=== PATIENT | female | born 1975 | race Caucasian/White ===

== ENCOUNTER 2020-03-04 07:27 | Outpatient (REF) | payer OTHER, SELFPAY ==
--- NOTE | 2020-03-04 07:36 | MM_ITS ---
EXAMINATION: MM SCREENING DIGITAL BREAST TOMOSYNTHESIS, BILATERAL CLINICAL INFORMATION: Screening. Asymptomatic. The lifetime risk of breast cancer based on the Tyrer-Cuzick Model is 19.2%. COMPARISON: Mammography: 07/14/2018, 07/04/2017 TECHNIQUE: Digital breast tomosynthesis is performed in both the craniocaudal and mediolateral oblique views along with computer-aided detection (CAD). Synthesized 2D images are generated from the tomosynthesis. Additional left MLO view is provided. FINDINGS: There are scattered areas of fibroglandular density (ACR BI-RADS breast composition Category b). There are no significant masses, abnormal calcifications, or other abnormalities. Parenchymal pattern is similar to prior exams. No significant changes. MM/MM tomosynthesis screening BI IMPRESSION: No mammographic evidence of malignancy. ASSESSMENT: BI-RADS 1: Negative RECOMMENDATION: Routine annual mammography screening. This patient's information was entered into a reminder system with a target due date for their next mammogram.
== END 2020-03-04 07:28 | disposition home or self-care (01) ==
LOC: HO.MAMMO 07:27
PROVIDERS: PCP Nurse Practitioner Family; Visit Provider Internal Medicine
DX: Z12.31 Encounter for screening mammogram for malignant neoplasm of breast (principal)
CPT/HCPCS: 77063; 77067

== ENCOUNTER 2021-03-17 08:24 | Outpatient (REF) | payer OTHER, SELFPAY ==
--- NOTE | ~2021-03-17 | MM_ITS ---
EXAMINATION: MM SCREENING DIGITAL BREAST TOMOSYNTHESIS, BILATERAL CLINICAL INFORMATION: Screening. Asymptomatic. The lifetime risk of breast cancer based on the Tyrer-Cuzick Model is 20%. COMPARISON: Mammography: 03/04/2020, 07/14/2018, 07/04/2017 (baseline) TECHNIQUE: Digital breast tomosynthesis is performed in both the craniocaudal and mediolateral oblique views along with computer-aided detection (CAD). Synthesized 2D images are generated from the tomosynthesis. FINDINGS: There are scattered areas of fibroglandular density (ACR BI-RADS breast composition Category b). There are no significant masses, abnormal calcifications, or other abnormalities. MM/MM tomosynthesis screening BI IMPRESSION: No mammographic evidence of malignancy. ASSESSMENT: BI-RADS 1: Negative RECOMMENDATION: 1. Routine annual mammography screening. 2. The lifetime risk of breast cancer based on the Tyrer-Cuzick Model is 20%. Additional annual adjunct screening with breast MRI may be of benefit in women with a risk score of 20% or greater. This patient's information was entered into a reminder system with a target due date for their next mammogram.
== END 2021-03-17 08:25 | disposition home or self-care (01) ==
LOC: HO.MAMMO 08:24
PROVIDERS: PCP Nurse Practitioner Family; Visit Provider Nurse Practitioner Family
DX: Z12.31 Encounter for screening mammogram for malignant neoplasm of breast (principal)
CPT/HCPCS: 77063; 77067

== ENCOUNTER 2022-03-23 07:59 | Outpatient (REF) | payer OTHER, SELFPAY ==
--- NOTE | ~2022-03-23 | MM_ITS ---
EXAMINATION: MM SCREENING DIGITAL BREAST TOMOSYNTHESIS, BILATERAL CLINICAL INFORMATION: Screening. Asymptomatic. The lifetime risk of breast cancer based on the Tyrer-Cuzick Model is 20.3%. Additional annual screening with breast MRI may be of benefit in women with a score of 20% or greater. COMPARISON: Mammography: March 17, 2021 and studies dating back to July 04, 2017 TECHNIQUE: Digital breast tomosynthesis is performed in both the craniocaudal and mediolateral oblique views along with computer-aided detection (CAD). Synthesized 2D images are generated from the tomosynthesis. FINDINGS: There are scattered areas of fibroglandular density (ACR BI-RADS breast composition Category b). There are no significant masses, abnormal calcifications, or other abnormalities. MM/MM tomosynthesis screening BI IMPRESSION: No significant changes from prior exam. ASSESSMENT: BI-RADS 1: Negative RECOMMENDATION: Routine annual mammography screening. This patient's information was entered into a reminder system with a target due date for their next mammogram.
== END 2022-03-23 08:00 | disposition home or self-care (01) ==
LOC: HO.MAMMO 07:59
PROVIDERS: PCP Nurse Practitioner Family; Visit Provider Nurse Practitioner Family
DX: Z12.31 Encounter for screening mammogram for malignant neoplasm of breast (principal)
CPT/HCPCS: 77063; 77067

== ENCOUNTER 2023-03-29 07:48 | Outpatient (REF) | payer OTHER, SELFPAY | END 2023-03-29 07:49 | disposition home or self-care (01) | LOC: HO.MAMMO 07:48 | PROVIDERS: PCP Nurse Practitioner Family; Visit Provider Nurse Practitioner Family | DX: Z12.31 Encounter for screening mammogram for malignant neoplasm of breast (principal) | CPT/HCPCS: 77063; 77067 ==

== ENCOUNTER → 2023-03-29 08:00 | Outpatient (BNV) | payer OTHER, SELFPAY | PROVIDERS: PCP Nurse Practitioner Family; Visit Provider Radiology Diagnostic Radiology | DX: Z12.31 Encounter for screening mammogram for malignant neoplasm of breast (principal) | CPT/HCPCS: 77063; 77067 ==

== ENCOUNTER 2024-04-01 07:51 | Outpatient (REF) | payer OTHER, SELFPAY ==
--- OUTSIDE RECORDS SUMMARY | 2024-04-01 07:54 | XMS_ITS | Clinical Summary ---
Author Organization [facility] Address [address] [place] [address] Care Team Providers Care Coal Sampler Name Role Phone Unavailable Primary Care Provider Unavailabl e Source Comments PLEASE NOTE, if this patient is a minor, it may be UNLAWFUL to discuss sensitive information that is contained in these records (such as FAMILY PLANNING, MENTAL HEALTH or SUBSTANCE ABUSE) with the minor patient's parent or other person without the patient's specific authorization.[facility] Immunizations Name Administration Dates Next Due Moderna COVID-19 Vaccine, re d cap blue label, 12+ Primary Series 06/24/2020,05/27/2020 Social History Tobacco Use Types Packs/Day Years Used Date Smoking Tobacco: Never Assessed Social Connections Answer Date Recorded Social Connections and Isolation 0 05/25/2020 Financial Resource Strain Answer Date R ecorded Financial Resource Strain 0 2020 Stress Answer Date Recorded Stress 0 05/25/2020 Physical Activity Answer Date Recorded Physical Activity 0 05/25/2020 Food Insecurity Answer Date Recorded Food 0 05/25/2020 Transportation Needs Answer Date Record ed Transportation 0 05/25/2020 Housing Stability Answer Date Recorded Housing 0 05/25/2020 Safety and Environment Answer Date Juan rded Safety 0 05/25/2020 Utilities Answer Date Recorded Utilities 0 05/25/2020 Employment Answer Date Recorded Employment 0 05/25/2020 Comments Unknown Sex and Gender Information Value Date Recorded Sex Assigned at Not on file Legal Sex Female 5:56 AM PDT Gender Identity Not on file Sexual Orientation Not on file Plan of Treatment Health Maintenance Due Date Last Done Comments Diabetes Screening 1977 HPV Screening 1977 Hepatitis C Screening 1977 Lipid Screening 1977 Pap + HPV 1977 Tobacco Screening 1977 HIV Screening 01/31/1992 Relationship Safety Screening/Counseling 01/31/1992 Annual Preventive Care Visit 1995 Hypertension Screening (#1) 1995 Imm-Hepatitis B (1 of 3 - 19 + 3-dose series) 01/31/1996 Cervical Cancer Screening 1998 Pap Smear 1998 Breast Cancer Screening (Mammogram) 2017 CT Colonography 2022 Colonoscopy 2022 Colorectal Cancer Screening 2022 FIT/gFOBT 2022 Fecal DNA 2022 Flexible Sigmoidoscopy 2022 Wln-[id number]-69 ( season) 2023 021, 05/27/2020 Imm-Influenza (#1) 2023 11/14/2019, 1 , 11/17/2017, Additional history exists Alcohol and Drug Screen 03/06/2024 Depression Annual Screen 03/06/2024 Imm-DTaP/Tdap/Td (2 - Td or Tdap) 11/13/2029 020 Cervical Ablation/Cold-Knife Conization Discontinued Cervical Cryotherapy Discontinued Colposcopy Discontinued Endometrial Biopsy Discontinued Excision/Leep Discontinued HPV Genotyping Discontinued Vaginal Pap Discontinued Vulvoscopy Discontinued Insurance HNE ([employer]) Member Subscriber Plan / Payer (Ef fective 2017-Present) Name:Eris Gandhi Relation to Subscriber:Self Name:Eris Gandhi Payer ID:[id number] Group ID:Not on file Type:Indemnity Address: [address] [place] [id number]
--- OUTSIDE RECORDS SUMMARY | 2024-04-01 07:54 | XMS_ITS | Data Portability ---
Author Organization [facility], [address] Address [address] [place] [id number] Assessment No assessment recorded. Plan of Treatment Reminders Order Date Submit Date Provider Last Modified By Organization Details Last Modified Time Details Appointments None recorded. Lab None recorded. Referral None recorded. Procedures None recorded. Surgeries None recorded. Imaging None recorded. Medication Orders prednisone 20 mg tablet 2021 022 [facility]/Pharmacy #[id number], [address] [place], [address], 08:48:21 Patient TargetsNo targets recorded. Patient Instructions Encounter Date Encounter Id Patient Instructions Last Modified By Organization Details Last Modified Time 02/19/2022 [id number] hip bursitis: care instructions [id number] Not available 02/19/2022 08:48:20 trochanteric bursitis: exercises [email or web address] Not available 02/19/2022 08:48:19 IF SYMPTOMS ARE NOT IMPROVING AFTER 5 DAYS, FOLLOW UP WITH AN ORTHOPEDIC. IF YOU NEED ANY HELP MAKING AN APPOINTMENT, PLEASE LET US KNOW. Go to the nearest emergency department if you develop ANY new or worsening symptoms. Call 911 if you feel that you are having a medical emergency. Call your primary care physician today to set up a follow up appointment within one week. Not following up with your primary care physician may result in adverse health conditions. If you have any questions or concerns, please call us. Take over the counter medications such as ibuprofen or tylenol according to package instructions. Do not exceed maximum dosage for age/weight. Do not take anything that you might be allergic to. Make sure to consult us or your primary care physician if you take medications such as blood thinners or blood pressure medications before taking over the counter medications. The best over the counter cough medication for people with high blood pressure is Coricidin, which is available at any pharmacy without a prescription. Drink plenty of water. [email or web address] Not available 02/19/2022 08:48:03 Reason for Referral None Reported. Problems No Known Problems Procedures Surgical History Date Name Laterality Status Provider Name and Address Organization Details Recorded Time procedure on neck completed BHAVANI DEPINTO PA - [facility] 02/19/2022 08:35:32 Imaging Results None recorded. Procedure Notes None recorded. Medical Equipment None Reported. Allergies No known drug allergies Medications Name Sig Start Date Stop Date Status Note LastModified by Organization Details LastModified Time prednisone 20 mg tablet Take 2 tablets every day by oral route for 5 days. 022 active Not Available Not Available Not Avai lable Vitals Date Recorded Body height Provider Name an d Address Organization Details Last Updated DateTime 02/19/2022 165.1 cm BHAVANI DEPINTO PA - [facility] 1 04/22/2021 08:33:23 Date Recorded Body mass index (BMI) Body weight Provider Name and Address Organization Details Last Updated DateTime 02/19/2022 32.3 kg/m2 25401.92 g BHAVANI DEPINTO PA - [facility] 02/19/2022 08:33:26 Date Recorded Pain severity - 0-10 verbal numeric rating [Score] - Reported Provider Name and Address Organization Details Last Updated DateTime 02/19/2022 0 BHAVANI DEPINTO PA - [facility] 1 04/22/2021 08:33:47 Date Recorded Respiratory rate Provider Name a nd Address Organization Details Last Updated DateTime 02/19/2022 20 /min BHAVANI DEPINTO PA - [facility] 1 04/22/2021 08:36:20 Date Recorded Body temperature Provider Name a nd Address Organization Details Last Updated DateTime 02/19/2022 97.5 [degF] BHAVANI DEPINTO PA - [facility] 02/19/2022 08:36:23 Date Recorded Oxygen saturation Oxygen saturation in Arterial blood by Pulse oximetry Provider Name and Address Organization Details Last Updated DateTime 02/19/2022 98 % 98 % BHAVANI DEPINTO PA - [facility] 02/19/2022 08:36:40 Date Recorded Heart rate Provider Name an d Address Organization Details Last Updated DateTime 02/19/2022 79 /min BHAVANI ALAMO PA - [facility] 1 04/22/2021 08:36:41 Date Recorded Systolic blood pressure Diastolic blood pressure Provider Name and Address Organization Details Last Updated DateTime 02/19/2022 144 mm[Hg] 83 mm[Hg] BHAVANI ALAMO PA - [facility] 02/19/2022 08:36:45 Social History Question Answer Notes LastModified by Organizat ion Details LastModified Time Tobacco Smoking Status Never Smoker BHAVANI ALAMO tony, PA - [facility] 02/19/2022 08:35:14 What Is Your Level Of Alcohol Consumption? Occasional Information not available 02/19/2022 How Many Times Per Week Do You Consume Alcohol? 1-2 Times Per Week Information not available 02/19/2022 Do You Use Any Illicit Or Recreational Drugs? No Information not available 02/19/2022 Have You Recently Traveled Abroad? No Information not available 02/19/2022 Do You Or Have You Ever Used Any Other Forms Of Tobacco Or Nicotine? No Information not available 02/19/2022 Sex: Unknown Functional Status None recorded. Mental Status None recorded. Family History Relationship Description Onset Age of this Age Resolved Age Notes LastModified by Organization Details LastModified Time Father Heart disease Not available 2021 08:35:01 Medical History No medical history recorded. Gynecological HistoryNo gynecological history recorded. Obstetrics History GPAL:G 0 P 0 0 0 0 Past Encounters Encounter ID Performer Location Encounter Start Date Encounter Closed Date Diagnosis/Indication Diagnosis SNOMED-CT Code Diagnosis ICD10 Code Diagnosis Note [id number] [address] [place] [address] 02/07/2018 09:52:36 02/07/2018 10:57:10 [id number] [address] [place] [address] 10/07/2018 08:57:42 10/07/2018 09:21:15 [id number] [facility] [address] [place], [place] [address] [address] 02/13/2015 13:55:53 02/13/2015 14:18:42 [id number] [facility] Wallace [address] [facility] JOSE RAMON Sanchez [address] 02/19/2022 08:28:56 02/19/2022 08:49:45 Trochanteric bursitis of left hip [id number] 63372 M70.62 Health Concerns Section Related Observation LastModified by Organization Detai ls LastModified Time None Recorded Concern Status LastModified by Organization Details LastModified Time None Recorded Advance Directives Directive None Recorded Payers Encounter Date Sequence Insurance Name Policy Number Policy Fraire Covered Member ID Fraire Member ID Guarantor Name 02/13/2015 1 [facility] [id number] 1 Eris Gandhi [id number] Eris Weber 02/07/2018 1 [facility] [id number] 1 Eris Gandhi [id number] Eris Weber 10/07/2018 1 [facility] [id number] 1 Eris Poole Cadieux [id number] Eris Weber 02/19/2022 1 [facility] [id number] 1 Eris Poole Cadieux [id number] Eris Weber Notes Date Note Type Note Provider Name and Address Organization Details Recorded Time 02/19/2022 text/html Thigh / HipReported bypatient.Notes:Pt reports left hip pain x 2 weeks. She was stretching after working out and got a charley horse in the left lateral proximal hip. Reports it hasn't really improved much since then. Reports it is particularly bothersome at night when she lays on it or moves, wakes her up from sleep. Taking ibuprofen without relief. Notices it more with movement, but also hurts to palpation. Maybe slight occasional left lumbar back pain, but only a few times. Denies knee pain. Denies numbness, tingling, weakness, swelling, or trauma to the area. GUILHERME Wallace [address] [place], [address], PA - [facility] 02/19/2022 08:55:51 OBGyn Episode No OBEpisode recorded.
--- OUTSIDE RECORDS SUMMARY | 2024-04-01 07:54 | XMS_ITS | Clinical Summary ---
Author Organization [facility] Address [address] [place] [phone] Phone Care Team Providers Care Toddler Nanny Name Role Phone Unavailable Primary Care Provider Unavailabl e Immunizations Name Administration Dates Next Due DTP 02/25/1982, 1,06/30/1978,06/27/18 78,1977 MMR 08/28/1992,12/25/1978 OPV 02/25/1982, 1,1977,05/23/18 78 Td (adult) (MBL), 2 Lf tetan us toxoid, PF, adsorbed 02/06/1992 Social History Tobacco Use Types Packs/Day Years Used Date Smoking Tobacco: Never Assessed Comments Unknown Sex and Gender Information Value Date Recorded Sex Assigned at Not on file Legal Sex Female 4:30 PM EDT Gender Identity Not on file Sexual Orientation Not on file Plan of Treatment Health Maintenance Due Date Last Done Comments DTaP,Tdap,and Td Vaccines (6 - Tdap) 02/07/1992 02/06/1992, 02/25/1982, 10/14/1980, Additional history exists Varicella Vaccines (1 of 2 - 13+ 2-dose series) 09/25/1992 Consider Men B Vaccine (1 of 2 - Bexsero 2-dose series) 1993 Hepatitis B Vaccines (1 of 3 - 19+ 3-dose series) 01/31/1996 Influenza Vaccines (#1) 2023 COVID-19 Vaccine (2023- season) 2023 IPV Vaccines Completed 02/25/1982, 10/04, 1977, Additional history exists MMR Vaccines Completed 08/28/1992, 12/25/1978 HIB Vaccines Aged Out No longer eligi ble based on patient's age to complete this topic HPV Vaccines Aged Out No longer eligi ble based on patient's age to complete this topic Hepatitis A Vaccines Aged Out No long er eligible based on patient's age to complete this topic Men B Vaccine Aged Out No longer elig ible based on patient's age to complete this topic Meningococcal Vaccine Aged Out No jason maura eligible based on patient's age to complete this topic Pneumococcal Vaccine Aged Out No long er eligible based on patient's age to complete this topic
== END 2024-04-01 07:52 | disposition home or self-care (01) ==
LOC: HO.MAMMO 07:51
PROVIDERS: PCP Nurse Practitioner Family; Visit Provider Family Medicine
DX: Z12.31 Encounter for screening mammogram for malignant neoplasm of breast (principal)
CPT/HCPCS: 77063; 77067

== ENCOUNTER → 2024-04-01 08:00 | Outpatient (BNV) | payer OTHER, SELFPAY | PROVIDERS: PCP Nurse Practitioner Family; Visit Provider Internal Medicine | DX: Z12.31 Encounter for screening mammogram for malignant neoplasm of breast (principal) | CPT/HCPCS: 77063; 77067 ==

== ENCOUNTER 2024-04-29 11:52 | Outpatient (REF) | payer OTHER, SELFPAY ==
--- NOTE | ~2024-04-29 | US_ITS ---
EXAMINATION: MM DIAGNOSTIC DIGITAL BREAST TOMOSYNTHESIS, RIGHT Limited right breast ultrasound. CLINICAL INFORMATION: Call back from screening for asymmetry in the lateral right breast on CC view posterior depth. COMPARISON: Mammography: Available prior mammograms. TECHNIQUE: Digital breast tomosynthesis is performed in both the craniocaudal and mediolateral oblique views along with computer-aided detection (CAD). Synthesized 2D images are generated from the tomosynthesis. Limited right breast ultrasound. FINDINGS: There are scattered areas of fibroglandular density (ACR BI-RADS breast composition Category b). Asymmetry in the lateral right breast posterior depth partially effaces on additional imaging projections. No suspicious calcifications or other abnormal findings. Targeted color Doppler ultrasound scanning in the lateral breast 7-11 o'clock demonstrates normal fibroglandular breast tissue. There is no sonographic abnormality. US/US breast RT limited mamm only IMPRESSION: Asymmetry lateral right breast CC view posterior depth without sonographic correlate which partially effaces. Recommend six-month follow-up mammography for further evaluation of stability. ASSESSMENT: BI-RADS BI-RADS 3 - Probably benign finding(s) - 6 month follow-up suggested RECOMMENDATION: 6 Month F/U Results were provided to the patient at time of visit by the technologist. This patient's information was entered into a reminder system with a target due date for their next mammogram. Electronically signed by: Dawna Spence DO 04/29/2024 01:09 PM FRANCE SANCEHZ
--- OUTSIDE RECORDS SUMMARY | 2024-04-29 13:43 | XMS_ITS | Clinical Summary ---
Author Organization [facility] Address [address] [place] [phone] Phone Care Team Providers Care Special Education Associate Name Role Phone Unavailable Primary Care Provider Unavailabl e Immunizations Immunization Administration Dates Next Due DTP 02/25/1982, 1,06/30/1978,1977,1977 MMR 08/28/1992,12/25/1978 OPV 02/25/1982, 1,1977,1977 Td (adult) (MBL), 2 Lf tetan us [...] of 2 - 13+ 2-dose series) 09/25/1992 Hepatitis B Vaccines (1 of 3 - [...]
--- OUTSIDE RECORDS SUMMARY | 2024-04-29 13:43 | XMS_ITS | Data Portability ---
Author Organization [facility], [address] Address [address] [place] [phone] Assessment No assessment recorded. Plan of Treatment Reminders Order Date Submit Date Provider Last Modified By Organization Details Last Modified Time Details Appointments None recorded. Lab None recorded. Referral None recorded. Procedures None recorded. Surgeries None recorded. Imaging None recorded. Medication Orders prednisone 20 mg tablet 2021 022 [facility]/Pharmacy #[id number], [address] [place], [address], 08:48:21 Patient TargetsNo targets recorded. Patient Instructions Encounter Date Encounter Id Patient Instructions Last Modified By Organization Details Last Modified Time 02/19/2022 [id number] hip bursitis: care instructions [email or web address] Not available 02/19/2022 08:48:20 trochanteric bursitis: exercises [email or web address] Not available 02/19/2022 08:48:19 IF SYMPTOMS ARE [...] without a prescription. Drink plenty of water. [email or web address] Not available 02/19/2022 08:48:03 Reason for Referral None Reported. Problems No Known Problems Procedures Surgical History Date Name Laterality Status Provider Name and Address Organization Details Recorded Time 9 procedure on neck completed BHAVANI ALAMO PA - [facility] 02/19/2022 08:35:32 Imaging [...] Avai lable Vitals Date Recorded Body height Body mass index (BMI) Body weight Pain severity - 0-10 verbal numeric rating [Score] - Reported Respiratory rate Body temperature Oxygen saturation Oxygen saturation in Arterial blood by Pulse oximetry Heart rate Systolic blood pressure Diastolic blood pressure Provider Name and Address Organization Details Last Updated DateTime 165.1 cm 32.3 kg/m2 32774.9 2 g 0 20 /min 97.5 [degF] 98 % 98 % 79 /min 144 mm[Hg] 83 mm[Hg] BHAVANI ALAMO PA - [facility] 08:36:45 Social History Question Answer Notes LastModified by Organizat ion Details LastModified Time Tobacco Smoking Status Never Smoker BHAVANI jimenez PA - [facility] 02/19/2022 08:35:14 What [...] SNOMED-CT Code Diagnosis ICD10 Code Diagnosis Note [id number] [address] [place] [address] 02/07/2018 09:52:36 02/07/2018 10:57:10 [id number] [address] [place] [address] 10/07/2018 08:57:42 10/07/2018 09:21:15 [id number] [address] [address] 02/13/2015 13:55:53 02/13/2015 14:18:42 [id number] GUILHERME Wallace [address] [place] [address] 02/19/2022 08:28:56 02/19/2022 08:49:45 Trochanteric bursitis of left hip [id number] M70.62 Health Concerns Section Related Observation LastModified by Organization Detai ls LastModified Time None Recorded Concern Status LastModified by Organization Details LastModified Time None Recorded Advance Directives Directive None Recorded Payers Encounter Date Sequence Insurance Name Policy Number Policy Fraire Covered Member ID Fraire Member ID Guarantor Name 02/13/2015 1 [facility] [id number] 1 Eris Gandhi [id number] Eris Weber 02/07/2018 1 [facility] [id number] 1 Eris Gandhi [id number] Eris Weber 10/07/2018 1 [facility] [id number] 1 Eris Gandhi [id number] Eris Weber 02/19/2022 1 [facility] [id number] 1 Eris Gandhi [id number] Eris Weber Notes Date Note Type Note [...] GUILHERME Wallace [address] [place], [address], [place] - [facility] 02/19/2022 08:55:51 OBGyn Episode No OBEpisode recorded.
--- OUTSIDE RECORDS SUMMARY | 2024-04-29 13:43 | XMS_ITS | Clinical Summary ---
Author Organization [facility] Address [address] [place] [address] Care Team Providers Care Meat And Seafood Manager Name Role Phone Unavailable Primary Care Provider [...] 2022 Fecal DNA 2022 Flexible Sigmoidoscopy 2022 Dcm-XHILE-51 ( season) 2023 021, 05/27/2020 Imm-Influenza (#1) 2023 11/14/2019, 1 , 11/17/2017, Additional history exists Alcohol and Drug Screen 03/06/2024 Depression Annual Screen 03/06/2024 Imm-DTaP/Tdap/Td (2 - Td or Tdap) 11/13/2029 020 Cervical Ablation/Cold-Knife Conization Discontinued Cervical Cryotherapy Discontinued Colposcopy Discontinued Endometrial Biopsy Discontinued Excision/Leep Discontinued HPV Genotyping Discontinued Vaginal Pap Discontinued Vulvoscopy Discontinued Insurance HNE ([employer] [place]) Member Subscriber Plan / Payer (Ef fective 2017-Present) Name:Eris Gandhi Relation to Subscriber:Self Name:Eris Gandhi Payer ID:[id number] Group ID:Not on file Type:Indemnity Address: [address] [place] [id number]
== END 2024-04-29 11:53 | disposition home or self-care (01) ==
LOC: HO.MAMMO 11:52
PROVIDERS: PCP Nurse Practitioner Family; Visit Provider Nurse Practitioner Family
DX: N64.89 Other specified disorders of breast (principal)
CPT/HCPCS: 76642; 77061; 77065

== ENCOUNTER → 2024-04-29 12:15 | Outpatient (BNV) | payer OTHER, SELFPAY | PROVIDERS: PCP Nurse Practitioner Family; Visit Provider Internal Medicine | DX: N64.89 Other specified disorders of breast (principal) | CPT/HCPCS: 76642; 77061; 77065 ==

== ENCOUNTER 2024-10-28 08:08 | Outpatient (REF) | payer OTHER, SELFPAY ==
--- NOTE | ~2024-10-28 | MM_ITS ---
EXAMINATION: MM DIAGNOSTIC DIGITAL BREAST TOMOSYNTHESIS, RIGHT CLINICAL INFORMATION: This is a 6-month follow-up for right breast asymmetry located in the lateral breast posterior depth on the CC view, without suspicious sonographic correlate. COMPARISON: right diagnostic mammogram/ultrasound on April 29, 2024, and bilateral mammogram on April 01, 2024. TECHNIQUE: Digital breast tomosynthesis is performed in craniocaudal view along with computer-aided detection (CAD). Synthesized 2D images are generated from the tomosynthesis. Spot compression tomosynthesis images were also obtained. FINDINGS: BREAST COMPOSITION: There are scattered areas of fibroglandular density (ACR BI-RADS breast composition Category b). RIGHT BREAST: Previously suggested asymmetry in the lateral breast posterior depth is not significantly changed from prior images from March and April 2024. MM/MM tomosynthesis diagnostic RT IMPRESSION: RIGHT BREAST: Asymmetry in the lateral breast posterior depth on the CC view, not significantly changed from March/April 2024. Probably benign. ASSESSMENT: BI-RADS 3 - Probably benign finding(s) - 6 month follow-up suggested RECOMMENDATION: 6 Month F/U Results were provided to the patient at time of visit by the technologist. This patient's information was entered into a reminder system with a target due date for their next mammogram. Electronically signed by: Karley Wheeler MD 10/28/2024 08:51 AM EDT
== END 2024-10-28 08:09 | disposition home or self-care (01) ==
LOC: HO.MAMMO 08:08
PROVIDERS: PCP Nurse Practitioner Family; Visit Provider Nurse Practitioner Family
DX: R92.8 Other abnormal and inconclusive findings on diagnostic imaging of breast (principal)
CPT/HCPCS: 77061; 77065

== ENCOUNTER → 2024-10-28 08:15 | Outpatient (BNV) | payer OTHER, SELFPAY | PROVIDERS: PCP Nurse Practitioner Family; Visit Provider Radiology Body Imaging | DX: R92.8 Other abnormal and inconclusive findings on diagnostic imaging of breast (principal) | CPT/HCPCS: 77061; 77065 ==